=== PATIENT | female | born 1970 | race Caucasian/White ===

== ENCOUNTER 2018-01-15 05:19 | Emergency (ER) | payer OTHER ==
[~2018-01-15] VITALS: Ht 165.1 cm; Wt 71.8 kg
[2018-01-15 05:22] VITALS: TEMP 97.9
[2018-01-15] MEDS ORDERED: WELLBUTRIN SR150 M1 PO (05:42)
[2018-01-15] MEDS ORDERED: AMITIZA24 MCG PO (05:43)
[2018-01-15] MEDS ORDERED: NEURONTIN300 MG/CAP PO (05:43)
[2018-01-15 05:47] LABS: BASO % 0.4 % (0.0-2.0); EOS # 0.1 (0.0-0.7); EOS % 0.9 % (0-4.0); GRAN # 6.1 (1.4-6.5); GRAN % 78.5 % (42.2-75.2); HEMATOCRIT 36.2 % (37.0-47.0); HEMOGLOBIN 12.6 g/dl (12.5-16.0); LYMPH # 1.1 (1.2-3.4); MEAN CELL VOLUME 92 fl (80.0-100.0); MEAN CORPUSCULAR HEMOGLOBIN 32 pg (27.0-31.0); MEAN CORPUSCULAR HGB CONC 35 g/dl (33.0-37.0); MEAN PLATELET VOLUME 9.3 fl (7.4-10.4); MONO # 0.5 (0.1-0.6); MONO % 5.8 % (1.7-9.3); PLATELET COUNT 221 K/mm3 (130-400); RED BLOOD COUNT 3.95 M/mm3 (4.10-5.30); REDCELL DISTRIBUTION WIDTH-CV 11.2 % (11.5-14.5)
[2018-01-15 06:00] LABS: ALBUMIN 3.7 gm/dL (3.5-5.0); BILIRUBIN,TOTAL 0.5 mg/dL (0.0-1.0); C-REACTIVE PROTEIN 0.6 mg/dL (0.0-0.9); CALCIUM 8.6 mg/dL (8.4-10.2); CREATININE, serum 0.93 mg/dL (0.52-1.25); POTASSIUM 3.7 mmol/L (3.4-5.0); TOTAL PROTEIN 6.7 gm/dL (6.4-8.2)
[2018-01-15 06:54] LABS: COLLECTION METHOD CLEAN CATCH
[2018-01-15 07:08] LABS: MUCOUS Present /lpf; PH 5 (5-8); SQUAMOUS EPITHELIAL 0-2 /hpf; URINE APPEARANCE Clear; URINE BACTERIA None Seen /hpf; URINE BILIRUBIN Negative (NEGATIVE); URINE BLOOD 1+ (NEGATIVE); URINE COLOR Yellow; URINE GLUCOSE Negative (NEGATIVE); URINE KETONE Negative (NEGATIVE); URINE LEUKOCYTE ESTERASE Negative (NEGATIVE); URINE NITRATE Negative (NEGATIVE); URINE PROTEIN(semi-quant) Negative (NEGATIVE); URINE UROBILINOGEN Negative (NEGATIVE)
[2018-01-15] MEDS ORDERED: VOLTAREN 75 DR75 MG PO (07:20)
[2018-01-15] MEDS ORDERED: NORCO 325 MG-51 TAB PO (07:20)
[2018-01-15] MEDS ORDERED: ZOFRAN ODT4 MG PO (07:20)
[2018-01-15 08:27] VITALS: BP 108/63; PULSE 72
== END 2018-01-15 08:28 | disposition home or self-care (01) ==
LOC: COL.ER 05:19
PROVIDERS: Emergency Medicine
DX: N20.1 Calculus of ureter (principal); N23 Unspecified renal colic
CPT/HCPCS: J1170; J1885; J2405; J7030; Q9967

== ENCOUNTER → 2018-07-05 | Outpatient (CLI) | payer OTHER ==
[~2018-07-05] MED LIST: AMITIZA24 MCG PO; NEURONTIN300 MG/CAP PO; NORCO 325 MG-51 TAB PO; VOLTAREN 75 DR75 MG PO; WELLBUTRIN SR150 M1 PO; ZOFRAN ODT4 MG PO
== END ==
LOC: COL.RAD 13:00
DX: M25.411 Effusion, right shoulder (principal); M25.412 Effusion, left shoulder